=== PATIENT | female | born 1945 | race African-American/Black ===

== ENCOUNTER 2019-11-05 18:04 | Inpatient (IN) | payer OTHER ==
[~2019-11-05] VITALS: Ht 165.1 cm; Wt 90.7 kg
--- NOTE | 2019-11-05 18:24 | NUR ---
Pt is medically cleared by Dr Wilson.
--- NOTE | 2019-11-05 18:28 | NUR ---
[facility] PROVIDED FOR PT. PT EATING WITH GOOD APETITE.
--- NOTE | 2019-11-05 19:38 | NUR ---
Dr Gonzales paged regarding admission and H&P.
[2019-11-05] MEDS ORDERED: MAGNESIUM HYDROXIDE 30 ML LIQUID UDC PO PRN (19:45)
[2019-11-05] MEDS ORDERED: LORAZEPAM 0.5 MG TABLET PO PRN ×2 (19:45→20:30)
[2019-11-05] MEDS ORDERED: MAG HYDROX/AL HYDROX/SIMETH 30 ML LIQUID UDC PO PRN (19:45)
[2019-11-05] MEDS ORDERED: BLOOD SUGAR DIAGNOSTIC 1 EACH STRIP VI ONE (19:45)
[2019-11-05 20:00] VITALS: BP 98/71
[2019-11-05] MEDS ORDERED: QUET25TA PO (20:02)
[2019-11-05] MEDS: LORAZEPAM 1 MG TABLET PO PRN (20:40)
--- NOTE | 2019-11-05 21:31 | NUR ---
GPS: Admitted to unit earlier a 74 yr.old female under the care of /Dr. Pollock in fair condition. Pt.is on a 72 hour hold for DTS/DTO. Pt.was brought in by his /significant other for suicidal ideation and anxiety to [facility] in [place] for non-compliance with her medication regimen. Pt.is A/O x3, hyperverbal,manic and with disorganized speech. Denies wanting to hurt self when asked. Denies H/I. Personal belongings completed. Skin assessment done. /significant other informed of pt's admission to the unit. / made aware of pt's admission to the unit. Pt's rights handbook/advisement given to pt. Unit rules explained to pt. and visiting hours. Ativan 1mg given PO . Will monitor effectiveness and will continue behavior monitoring. Safety emphasized.
[2019-11-05] MEDS: ACETAMINOPHEN 325 MG TABLET PO PRN (22:23)
[2019-11-05] MEDS: TEMAZEPAM 7.5 MG CAPSULE PO PRN (22:42)
[2019-11-06 07:30] VITALS: BP 102/65
[2019-11-06] MEDS: LORAZEPAM 1 MG TABLET PO PRN (12:22)
[2019-11-06] MEDS: DIVALPROEX 250 MG TABLET.DR PO SCH ×2 (12:22→16:30)
--- NOTE | 2019-11-06 12:59 | NUR ---
Social Work Note/Family Contact: Patient Care Technician spoke with patient's domestic partner, Salvatore Kinsey ([phone]) who stated that he would like patient to return home after discharge and have a psychiatrist for outpatient follow ups. SW informed that this will be provided.
--- NOTE | 2019-11-06 12:59 | NUR ---
Social Work Note/Initial Discharge Gray: Patient lives with her partner, Salvatore Kinsey ([phone]) in their residence [address] [place] [address] ([phone]). Patient will return home upon discharge. kettle worker will continue to work with patient, family, and MD to ensure a safe and proper discharge plan.
--- NOTE | 2019-11-06 13:54 | NUR ---
Social Work Note/UR Note: Field Evidence Technician spoke with Clari ([phone]) from [facility] for concurrent review. Field Evidence Technician faxed Clari patient History and physical and current medication list to (fax: [phone]). AUTHORIZATION#[id number]
[2019-11-06 15:45] VITALS: BP 128/65
[2019-11-06 20:06] VITALS: BP 122/55
[2019-11-06] MEDS: TEMAZEPAM 7.5 MG CAPSULE PO PRN (20:11)
[2019-11-06] MEDS ORDERED: OLANZAPINE 2.5 MG TABLET PO SCH (21:00)
[2019-11-06 22:14] LABS: *BILIRUBIN,URIN NEGATIVE (NEGATIVE); *BLOOD, URINE NEGATIVE (NEGATIVE); *CLARITY,URINE CLEAR (CLEAR); *COLOR,URINE YELLOW (YELLOW); *KETONES,URINE NEGATIVE (NEGATIVE); *UROBILINOGEN,URINE 0.2 E.U./dl (NORMAL); LEUKOCYTE ESTERASE ,URINE TRACE (NEGATIVE); NITRITE, URINE NEGATIVE (NEGATIVE); UGLUCOSE NEGATIVE (NEGATIVE)
[2019-11-06 22:15] LABS: RBC,URINE 0-3 /HPF (0-3); SQUAMOUS EPITHELIAL CELL,UR FEW /HPF (NONE SEEN)
--- NOTE | 2019-11-06 23:05 | NUR ---
UA results show indication for UTI. MD Harp order Macrobid 100 mg Q12H x 3 days. Will continue to monitor.
[2019-11-07] MEDS: LORAZEPAM 1 MG TABLET PO PRN ×2 (00:15→14:31)
[2019-11-07 06:24] LABS: BASOPHILS % (AUTO) 0.9 % (0.0-2.0); EOSINOPHILS # (AUTO) 0.2 K/uL (0.0-0.7); EOSINOPHILS % (AUTO) 4.5 % (0.0-7.0); HEMATOCRIT 36.4 % (31.2-41.9); HEMOGLOBIN 12.1 g/dL (10.9-14.3); LYMPHOCYTES # (AUTO) 1.7 K/uL (20.0-40.0); LYMPHOCYTES % (AUTO) 31.7 % (20.5-51.5); MEAN CORPUSCULAR HEMOGLOBIN 27.8 uug (24.7-32.8); MEAN CORPUSCULAR HGB CONC 33 g/dL (32.3-35.6); MEAN CORPUSCULAR VOLUME 83.3 fL (75.5-95.3); MONOCYTES # (AUTO) 0.4 K/uL (2.0-10.0); MONOCYTES % (AUTO) 6.9 % (0.0-11.0); PLATELET COUNT (AUTO) 224 K/uL (179-408); RED BLOOD CELL COUNT(AUTO) 4.37 MIL/uL (3.63-4.92); WHITE BLOOD COUNT (AUTO) 5.3 K/uL (3.8-11.8)
[2019-11-07 06:53] LABS: BILIRUBIN,TOTAL 0.5 mg/dL (0.2-1.0); MAGNESIUM 2.1 mg/dL (1.8-2.4); PHOSPHOROUS 3.5 mg/dL (2.5-4.9); POTASSIUM 4.6 mmol/L (3.5-5.1); TOTAL PROTEIN, SERUM 6.8 g/dL (6.4-8.2)
[2019-11-07 06:57] LABS: THYROID STIMULATING HORMONE 1.687 mIU/mL (0.358-3.740)
[2019-11-07 07:30] VITALS: BP 106/63
[2019-11-07] MEDS: DIVALPROEX 250 MG TABLET.DR PO SCH ×3 (08:28→16:00)
[2019-11-07] MEDS: NITROFURANTOIN/NITROFURAN MAC 100 MG CAPSULE PO SCH ×2 (08:28→20:05)
--- NOTE | 2019-11-07 12:02 | NUR ---
Social Work/Firearms Report (DO[employer]): Veterinary Physiologist completed and submitted a [employer] firearms report for 5150 danger to self and others certification. A copy of report has been placed in patient chart.
[2019-11-07 16:00] VITALS: BP 121/71
[2019-11-07 20:05] VITALS: BP 115/59
[2019-11-07] MEDS ORDERED: OLANZAPINE 2.5 MG TABLET PO SCH (21:00)
--- NOTE | 2019-11-07 21:00 | NUR ---
Received patient in her room sitting in her bed sorting magazine paper. Pt in noted a/o x 3 calm and pleasant upon approached; she is able to ambulate with steady gait. upon interview patient stated that she is here because she is bipolar and needs some medication; however, she thinks that she does not belong here because she just can see her psychiatrist as outpatient. patient is reassured and redirected. poor insight is noted into her admission to [facility]. he is noted with bright affect, labile, hyperverbal; she denied SI/HI/VH/AV. No aggressive/combative bx noted at this time. v/s stable at this time. Pt is reassured for her safety. safety and fall precaution in place. will continue to monitor.
[2019-11-08] MEDS: TEMAZEPAM 7.5 MG CAPSULE PO PRN ×2 (01:55→21:52)
--- NOTE | 2019-11-08 02:00 | NUR ---
PATIENT NOTED PACING THE HALLWAY, HYPERVERBAL, INTRUSIVE. TEMAZEPAN 7.5MG PO PRN GIVEN FOR INSOMNIA. WILL CONTINUE TO MONITOR.
--- NOTE | 2019-11-08 03:30 | NUR ---
TEMAZEPAM 7.5 MG PO PRN WAS INEFFECTIVE. PATIENT NOTED AWAKE SITTING IN HER ROOM IN BED LOOKING AT HER PAPERS AND MAGAZINE. WILL CONTINUE TO MONITOR.
--- NOTE | 2019-11-08 06:59 | NUR ---
Patient slept for approx. .30 min through the night. she continue intrusive, hyperverbal. she required multiple redirection. No aggressive/combative bx. noted or reported during the shift. patient remains compliant with medication regiment diet and plan of care.
[2019-11-08 07:30] VITALS: BP 109/67
[2019-11-08] MEDS: DIVALPROEX 250 MG TABLET.DR PO SCH ×4 (08:14→20:09)
[2019-11-08] MEDS: NITROFURANTOIN/NITROFURAN MAC 100 MG CAPSULE PO SCH ×2 (08:14→20:08)
--- NOTE | 2019-11-08 08:40 | NUR ---
Received patient awake, alert and oriented x4 in her assigned bed. Bed is in low and locked position. Patient is ambulatory and able to perform self care and ADL's independently. Patient is medication adherent. Patient provided with education about communicating her needs appropriately to staff and impulse control. Patient encouraged to participate in therapeutic milieu.
[2019-11-08] MEDS ORDERED: DIVALPROEX 250 MG TABLET.DR PO SCH ×2 (13:00→21:00)
--- NOTE | 2019-11-08 14:47 | NUR ---
Social Work/UR Note: Sterile Products Processor spoke with Clari ([phone]) from [facility] for concurrent review. Sterile Products Processor faxed Clari patient History and physical and current medication list and progress notes (fax: [phone]). AUTHORIZATION#[id number]
[2019-11-08 16:18] VITALS: BP 104/49
[2019-11-08] MEDS: OLANZAPINE 2.5 MG TABLET PO SCH (20:08)
[2019-11-08 20:14] VITALS: BP 124/58
[2019-11-08] MEDS: ACETAMINOPHEN 325 MG TABLET PO PRN (23:15)
[2019-11-09] MEDS: LORAZEPAM 1 MG TABLET PO PRN (01:05)
[2019-11-09 07:48] VITALS: BP 138/67
[2019-11-09] MEDS: NITROFURANTOIN/NITROFURAN MAC 100 MG CAPSULE PO SCH ×2 (08:08→20:04)
[2019-11-09] MEDS: CYANOCOBALAMIN 1000 MCG/ML VIAL IM SCH (08:08)
[2019-11-09] MEDS: DIVALPROEX 250 MG TABLET.DR PO SCH ×4 (08:08→20:04)
--- NOTE | 2019-11-09 16:06 | NUR ---
Social Work/Discharge Planning: Commercial Loan Closer spoke with Clari ([phone]) from [facility] requesting to get a referral for outpatient psychiatry. SW faxed a request for this services per Clari's orders.
[2019-11-09 16:12] VITALS: BP 118/67
--- NOTE | 2019-11-09 17:33 | NUR ---
GPS: RECEIVED PATIENT AOX3-4, COMPLIANT WITH MEDICATION, LESS INTRUSIVE, TOOK SHOWER, PATIENT BEEN ON PHONE , TALKING WITH FAMILY, PATIENT ENJOYED TALKING WITH OTHER PATIENT AND STAFF , REMAIN CALM AND COOPERATIVE
[2019-11-09 20:00] VITALS: BP 110/71
[2019-11-09] MEDS: OLANZAPINE 2.5 MG TABLET PO SCH (20:04)
[2019-11-10] MEDS: ACETAMINOPHEN 325 MG TABLET PO PRN (03:14)
[2019-11-10 07:30] VITALS: BP 139/72
[2019-11-10] MEDS: DIVALPROEX 250 MG TABLET.DR PO SCH ×3 (08:19→21:13)
[2019-11-10] MEDS: NITROFURANTOIN/NITROFURAN MAC 100 MG CAPSULE PO SCH ×2 (09:20→21:12)
[2019-11-10] MEDS: CYANOCOBALAMIN 1000 MCG/ML VIAL IM SCH (09:21)
--- NOTE | 2019-11-10 10:30 | NUR ---
Gps/Handkerchief Presser- Compliant with am meds. less manic, but intrusiveness noted. Stayed in the dinning room during meals
[2019-11-10 16:00] VITALS: BP 144/62
[2019-11-10 20:46] VITALS: BP 146/68
[2019-11-10] MEDS ORDERED: OLANZAPINE 5 MG TABLET PO SCH (21:00)
[2019-11-10] MEDS ORDERED: OLANZAPINE 2.5 MG TABLET PO SCH (21:00)
[2019-11-10] MEDS: TEMAZEPAM 7.5 MG CAPSULE PO PRN (23:11)
[2019-11-11] MEDS: ACETAMINOPHEN 325 MG TABLET PO PRN (02:31)
--- NOTE | 2019-11-11 02:45 | NUR ---
PATIENT NOTED PACING THE HALLWAY. SHE WAS NOTED HYPERVERBAL. STATED THAT SHE WAS HAVING LOWER BACK PAIN. TYLENOL 650MG PO PRN WAS GIVEN. WILL CONTINUE TO MONITOR.
[2019-11-11 07:30] VITALS: BP 138/83
[2019-11-11 08:24] LABS: BASOPHILS % (AUTO) 0.8 % (0.0-2.0); EOSINOPHILS # (AUTO) 0.2 K/uL (0.0-0.7); EOSINOPHILS % (AUTO) 3.4 % (0.0-7.0); HEMOGLOBIN 12.3 g/dL (10.9-14.3); LYMPHOCYTES # (AUTO) 1.8 K/uL (20.0-40.0); LYMPHOCYTES % (AUTO) 32.6 % (20.5-51.5); MEAN CORPUSCULAR HEMOGLOBIN 27.6 uug (24.7-32.8); MEAN CORPUSCULAR HGB CONC 33 g/dL (32.3-35.6); MEAN CORPUSCULAR VOLUME 83.4 fL (75.5-95.3); MONOCYTES # (AUTO) 0.4 K/uL (2.0-10.0); MONOCYTES % (AUTO) 7.5 % (0.0-11.0); NEUTROPHILS # (AUTO) 3.1 K/uL (1.8-8.9); NEUTROPHILS % (AUTO) 55.7 % (38.5-71.5); PLATELET COUNT (AUTO) 249 K/uL (179-408); RED BLOOD CELL COUNT(AUTO) 4.44 MIL/uL (3.63-4.92); WHITE BLOOD COUNT (AUTO) 5.5 K/uL (3.8-11.8)
[2019-11-11] MEDS: NITROFURANTOIN/NITROFURAN MAC 100 MG CAPSULE PO SCH (08:25)
[2019-11-11] MEDS: DIVALPROEX 250 MG TABLET.DR PO SCH ×3 (08:25→20:38)
[2019-11-11 08:26] LABS: ALANINE AMINOTRANSFERASE 28 U/L (14-59); ALKALINE PHOSPHATASE 70 U/L (50-136); ASPARTATE AMINOTRANSFERASE 32 U/L (15-37); BILIRUBIN,TOTAL 0.6 mg/dL (0.2-1.0); CARBON DIOXIDE 25 mmol/L (21-32); CHLORIDE 108 mmol/L (98-107); CREATININE 0.8 mg/dL (0.6-1.3); GLUCOSE 93 mg/dL (74-106); TOTAL PROTEIN, SERUM 7.2 g/dL (6.4-8.2); UREA NITROGEN, BLOOD 17 mg/dL (7-18); VALPROIC ACID 71 ug/mL (50-100)
[2019-11-11] MEDS: CYANOCOBALAMIN 1000 MCG/ML VIAL IM SCH (08:26)
[2019-11-11 15:08] VITALS: BP 105/56
[2019-11-11] MEDS: LORAZEPAM 1 MG TABLET PO PRN (19:33)
[2019-11-11 20:30] VITALS: BP 158/79
[2019-11-11] MEDS: OLANZAPINE 5 MG TABLET PO SCH (20:38)
[2019-11-12] MEDS ORDERED: ACETAMINOPHEN 325 MG TABLET ONE (00:55)
[2019-11-12] MEDS: ACETAMINOPHEN 325 MG TABLET PO PRN (01:00)
[2019-11-12 07:30] VITALS: BP 122/60
[2019-11-12] MEDS: DIVALPROEX 250 MG TABLET.DR PO SCH ×2 (08:27→20:09)
[2019-11-12] MEDS: CYANOCOBALAMIN 1000 MCG/ML VIAL IM SCH (08:27)
[2019-11-12 15:25] VITALS: BP 125/60
--- NOTE | 2019-11-12 15:42 | NUR ---
Social Work/Discharge Planning: Felled Seam Operator Chainstitch spoke with Lobo from [facility] who stated that Laura Squires [phone]) is the only contracted hands and dial inspector for mental health services for the patient. Lobo also stated that [facility] ([phone]). Felled Seam Operator Chainstitch inquired about any other outpatient psychiatric services and Lobo stated that these two are the only locations the patient can go to for services. Addendum: 11/12/19 at 1545 by MONTY JARVIS Lobo from [facility] phone number ([phone]).
[2019-11-12] MEDS: OLANZAPINE 5 MG TABLET PO SCH (20:09)
[2019-11-13] MEDS: TEMAZEPAM 7.5 MG CAPSULE PO PRN (00:53)
[2019-11-13] MEDS: ACETAMINOPHEN 325 MG TABLET PO PRN (00:54)
[2019-11-13 08:00] VITALS: BP 128/63
[2019-11-13] MEDS ORDERED: DIVALPROEX 250 MG TABLET.DR PO SCH (08:00)
[2019-11-13] MEDS: CYANOCOBALAMIN 1000 MCG/ML VIAL IM SCH (08:02)
--- NOTE | 2019-11-13 08:05 | NUR ---
Social Work/Discharge Note: Patient will be discharged home [address], [place] [address] ([phone]). Patient will be provided with a Taxi voucher and transported back home today via Taxi at 12pm. Patients , Salvatore Kinsey ([phone]) is very supportive and is aware and agreeable with discharge plans. Patient is alert and oriented times 4, is aware agreeable with discharge plans. Patient denies suicidal or homicidal ideation and presents with normal mood and full range affect. Patient will be following up with her primary care physician, Dr. Carlyle Monteiro ([phone]) [address] [place] [address] [address], [place] [address] and has an appointment scheduled on October at 10AM and needs to check in at 9:45AM. Patient is referred through her [employer] insurance to [facility] for outpatient psychiatric and mental health services. timber mill worker spoke with Lizy at [facility] location: [address] [place] [address] [address], [place] [address] ([phone]) who received the patients information and will be calling for intake the following day. Patient was also referred to [facility] for Intensive Outpatient Program for Mental Health Services ([phone]) [address] [place] [address]. Patient was also provided with outpatient mental health resources to [facility] Crisis Line , and the National Suicide Prevention Lifeline .
--- NOTE | 2019-11-13 11:15 | NUR ---
GPS: Nursing Notes: Discharge Notes: Patient is awake and responding to her name, cooperative with nursing care, compliant with her medications, following staff directions, A/Ox4, denies any SI/HI, denies any AH/VH, denies any pain or discomfort, denies any SOB, discharge home at [address], [id number] , took her belongings with her, transported via [employer], instructions and prescriptions given to the patient. Patient will be following up with her primary care physician, Dr. Carlyle Monteiro ([phone]) [address] [facility] [address], [address] and has an appointment scheduled on October at 10AM and needs to check in at 9:45AM. Patient is referred through her [employer] insurance to [facility] for outpatient psychiatric and mental health services. general worker spoke with Lizy at [facility] location: [address] [facility] [address], [address] ([phone]) who received the patients information and will be calling for intake the following day. Patient was also referred to [facility] for Intensive Outpatient Program for Mental Health Services ([phone]) [address] [place] [address]. Patient was also provided with outpatient mental health resources to [facility] Crisis Line , and the National Suicide Prevention Lifeline .
== END 2019-11-13 11:15 | disposition home or self-care (01) | DRG 885 ==
LOC: ER 18:04 → GPS 18:50
PROVIDERS: ADMIT Psychiatry & Neurology Psychosomatic Medicine; ATTEND Internal Medicine
DX: F25.0 Schizoaffective disorder, bipolar type (principal); G92 Toxic encephalopathy; N39.0 Urinary tract infection, site not specified; Z16.11 Resistance to penicillins; R26.81 Unsteadiness on feet; M19.90 Unspecified osteoarthritis, unspecified site; K59.00 Constipation, unspecified; B96.20 Unspecified Escherichia coli [E. coli] as the cause of diseases classified elsewhere; M62.84 Sarcopenia; F03.90 Unspecified dementia, unspecified severity, without behavioral disturbance, psychotic disturbance, mood disturbance, and anxiety; E66.9 Obesity, unspecified; Z68.33 Body mass index [BMI] 33.0-33.9, adult; Z90.710 Acquired absence of both cervix and uterus; Z86.73 Personal history of transient ischemic attack (TIA), and cerebral infarction without residual deficits; Z91.81 History of falling
CPT/HCPCS: 36415; 70450; 71045; 80164; 83735; 84100; 84443; 85025; 87077; 87086; 93005; A4663; J3420; J3490